=== PATIENT | female | born 1970 | race Caucasian/White ===

== ENCOUNTER 2024-01-21 08:56 | Outpatient (CLI) | payer BC | END 2024-01-21 08:57 | disposition home or self-care (01) | LOC: CSHLAB 08:56 | PROVIDERS: ATTEND Obstetrics & Gynecology | DX: Z01.818 Encounter for other preprocedural examination (principal); N81.4 Uterovaginal prolapse, unspecified | CPT/HCPCS: 84703; 85027; 86850; 86900; 86901; 93005; 93010 ==

== ENCOUNTER 2024-01-23 06:05 | Observation (INO) | payer BC ==
[2024-01-21 10:11] LABS: Hematocrit 49.1 % (34.9-44.5); Hemoglobin 16.5 g/dL (12.0-15.5); Mean Corpuscular HGB CONC 33.6 g/dL (32.0-36.0); Mean Corpuscular Volume 104.2 fL (81.6-98.3); Mean Platelet Volume 9.5 fL (7.4-10.4); Platelet Count 234 10x3/uL (150-450); RBC Distribution Width 16.5 % (11.5-14.5); Red Blood Cell (RBC) Count 4.71 10x6/uL (3.90-5.03)
[2024-01-21 10:16] LABS: BHCG - Serum Negative (NEGATIVE); Pregs Control Background? CLEAR/WHITE (CLR/WHITE); Pregs Control Bar Appear? YES (CONTROL BAR)
[2024-01-23] MEDS ORDERED: Lidocaine 2% PF 5 ML VIAL ONE (06:23)
[2024-01-23] MEDS ORDERED: PROPOFOL 20 ML ONE (06:24)
[2024-01-23] MEDS ORDERED: Dexamethasone 4 mg/ml Vial ONE (06:24)
[2024-01-23] MEDS ORDERED: Ondansetron PF 4 MG/2 ML Vial ONE (06:24)
[2024-01-23] MEDS ORDERED: Rocuronium Bromide 10 MG/ML (10ML VIAL) ONE (06:24)
[2024-01-23] MEDS ORDERED: Dexmedetomidine 200 MCG/2 ML VIAL ONE (06:25)
[2024-01-23] MEDS ORDERED: Propofol 1,000 MG/100 ML VIAL IV ONE (06:38)
[2024-01-23] MEDS ORDERED: Famotidine/PF 20 mg/2ml Vial ONE ×2 (06:39→06:53)
[2024-01-23] MEDS ORDERED: Bupivacaine HCl 0.5%/Epinephrine 1:200,000/PF 30 ml Vial ONE (06:49)
[2024-01-23] MEDS ORDERED: CEFAZOLIN 2 GM VIAL ONE (06:49)
[2024-01-23] MEDS ORDERED: Lidocaine 1% w/Epinephrine 1:200K 30 ML VIAL ONE (06:53)
[2024-01-23] MEDS ORDERED: Gabapentin 300 MG CAP ONE (06:53)
[2024-01-23] MEDS ORDERED: Methylene Blue 50 MG/10 ML AMPUL ONE (06:55)
[2024-01-23] MEDS ORDERED: fentaNYL 50 mcg/mL 1 mL Vial ONE ×4 (07:12→10:53)
[2024-01-23] MEDS ORDERED: Midazolam HCl 2 mg/2 ml Vial ONE (07:12)
[2024-01-23] MEDS ORDERED: diphenhydrAMINE 50 MG/ML VIAL ONE (07:47)
[2024-01-23] MEDS ORDERED: KETAMINE 100 MG/ML (5ML VIAL) ONE (08:04)
[2024-01-23] MEDS ORDERED: SUGAMMADEX SODIUM 200 MG/2 ML VIAL ONE (08:25)
[2024-01-23] MEDS ORDERED: Ondansetron PF 4 MG/2 ML Vial IVP PRN (10:16)
[2024-01-23] MEDS ORDERED: Promethazine HCl 25 MG/ML VIAL IM PRN (10:16)
[2024-01-23] MEDS ORDERED: Zolpidem Tartrate 5 MG TAB PO PRN (10:16)
[2024-01-23] MEDS ORDERED: HYDROcodone/Acetaminophen 10/325 mg Tablet PO PRN (10:16)
[2024-01-23] MEDS ORDERED: Simethicone Chewable 80 MG TAB PO PRN (10:16)
[2024-01-23] MEDS ORDERED: Meperidine HCl/PF 25 MG (1 mL) VIAL ONE (10:39)
[2024-01-23 11:25] VITALS: BMI 29.1
[2024-01-23] MEDS: Ketorolac Tromethamine 30 MG (1 mL) VIAL IVP SCH (12:20)
[2024-01-23] MEDS: Lactated Ringer's 1,000 ML IV SCH (12:20)
[2024-01-23] MEDS ORDERED: Famotidine 20 MG TAB PO PRN (13:35)
[2024-01-23] MEDS: fentaNYL 50 mcg/mL 1 mL Vial SLOW IVP PRN (14:24)
[2024-01-23] MEDS: Progesterone,Micronized 100 MG CAP PO SCH (20:39)
[2024-01-23] MEDS: HYDROcodone/Acetaminophen 10/325 mg Tablet PO PRN (20:39)
[2024-01-24 03:50] LABS: Hematocrit 39.3 % (34.9-44.5); Hemoglobin 12.9 g/dL (12.0-15.5); Mean Corpuscular HGB CONC 32.8 g/dL (32.0-36.0); Mean Corpuscular Hemoglobin 35.3 pg (27.0-33.0); Mean Corpuscular Volume 107.7 fL (81.6-98.3); Mean Platelet Volume 9.8 fL (7.4-10.4); Platelet Count 173 10x3/uL (150-450); RBC Distribution Width 15.7 % (11.5-14.5); Red Blood Cell (RBC) Count 3.65 10x6/uL (3.90-5.03); White Blood Cell (WBC) Count 9.5 10x3/uL (3.5-10.5)
[2024-01-24 07:51] VITALS: BP 141/79; TEMP 98.3
[2024-01-24] MEDS ORDERED: Nebivolol HCl 5 MG TAB PO SCH (09:00)
[2024-01-24] MEDS ORDERED: Multivit, Therapeutic 1 TAB PO SCH (09:00)
[2024-01-27] MEDS ORDERED: SEMAGLUTIDE SC SCH (13:39)
[2024-01-28] MEDS ORDERED: Ibuprofen 800 MG TAB PO SCH (21:00)
== END 2024-01-24 09:15 | disposition home or self-care (01) ==
LOC: EDSEX → CSHSDC 06:05 → CSHPED 07:22 → INTOOBSV 07:22
PROVIDERS: ADMIT Obstetrics & Gynecology; ATTEND Obstetrics & Gynecology
PROC: 0UT94ZZ Resection of Uterus, Percutaneous Endoscopic Approach (ICD-10-PCS; principal; 2024-01-23)
PROC: 0UT74ZZ Resection of Bilateral Fallopian Tubes, Percutaneous Endoscopic Approach (ICD-10-PCS; 2024-01-23)
PROC: 0UT24ZZ Resection of Bilateral Ovaries, Percutaneous Endoscopic Approach (ICD-10-PCS; 2024-01-23)
PROC: 0TSD4ZZ Reposition Urethra, Percutaneous Endoscopic Approach (ICD-10-PCS; 2024-01-24)
DX: N81.4 Uterovaginal prolapse, unspecified (principal); N87.9 Dysplasia of cervix uteri, unspecified; N80.03 Adenomyosis of the uterus; N83.8 Other noninflammatory disorders of ovary, fallopian tube and broad ligament; I10 Essential (primary) hypertension; K21.9 Gastro-esophageal reflux disease without esophagitis; G47.00 Insomnia, unspecified; M19.90 Unspecified osteoarthritis, unspecified site; Z98.51 Tubal ligation status; Z98.84 Bariatric surgery status; Z98.890 Other specified postprocedural states; Z88.2 Allergy status to sulfonamides; Z79.890 Hormone replacement therapy; Z79.1 Long term (current) use of non-steroidal anti-inflammatories (NSAID); Z79.899 Other long term (current) drug therapy
CPT/HCPCS: 36415; 84703; 85027; 86850; 86900; 86901; 88307; C1771; J1100; J1200; J1885; J2175; J2250; J2405; J2704; J3010; J3490; J7120; S2900